=== PATIENT | female | born 2000 | race Caucasian/White ===

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

== ENCOUNTER 2021-11-24 22:26 | Emergency (ER) | payer BC, OTHER ==
[~2021-11-24] VITALS: Ht 160 cm; Wt 86.2 kg
[2021-11-25 02:02] LABS: Source, Urine Clean Catch
[2021-11-25 02:10] LABS: Bilirubin, Urine Neg (Neg); Blood, Urine Neg (Neg); Glucose Qualitative, Urine Neg (Neg); Ketones, Urine Neg (Neg); Leukocyte Esterase, Urine Neg (Neg); Nitrite, Urine Neg (Neg); Protein, Urine Neg (Neg); Urobilinogen, Urine NORM (Normal)
[2021-11-25 02:22] LABS: Color, Urine Pale Yellow (P-Yellow)
[2021-11-25 02:24] LABS: Appearance, Urine Hazy (Clear); Bacteria Many /hpf; Red Blood Cells, Urine 0-2 /hpf (0-2); Squamous Epithelial Cells Few /hpf (Few); White Blood Cells, Urine 0-2 /hpf (0-5)
[2021-11-25] MEDS ORDERED: ONDA4ODT MM (03:38)
== END 2021-11-25 03:47 | disposition home or self-care (01) ==
LOC: ER 22:26
PROVIDERS: Physician Assistant
DX: S06.0X0A Concussion without loss of consciousness, initial encounter (principal); W01.198A Fall on same level from slipping, tripping and stumbling with subsequent striking against other object, initial encounter
CPT/HCPCS: 70450; 81001; 81025; 87086; 99284-25; A9270

== ENCOUNTER 2023-06-05 15:45 | Emergency (ER) | payer OTHER ==
[~2023-06-05] VITALS: Ht 160 cm; Wt 86.2 kg
[~2023-06-05 15:45] MED LIST changes: +ONDA4ODT MM
[2023-06-05 15:55] VITALS: BP 148/89
[2023-06-05 16:43] LABS: Influenza A, PCR NEGATIVE (NEGATIVE); Influenza B, PCR NEGATIVE (NEGATIVE); Resp Syncytial Virus, PCR NEGATIVE (NEGATIVE); SARS-Cov-2 (COVID-19) PCR, MMC NEGATIVE (NEGATIVE)
== END 2023-06-05 17:36 | disposition home or self-care (01) ==
LOC: ER 15:45
PROVIDERS: Student in an Organized Health Care Education/Training Program
DX: R07.89 Other chest pain (principal); Z11.52 Encounter for screening for COVID-19
CPT/HCPCS: 0241U; 71046; 93005; 93010; 99285-25